=== PATIENT | male | born 2000 ===

== ENCOUNTER 2021-02-24 03:51 | Emergency (ER) | payer BC ==
--- NOTE | 2021-02-24 04:02 | EDM.PDOCBH ---
<Jorge Costa - Last Filed: 02/24/21 03:59> ED HPI GENERAL MEDICAL PROBLEM - General Stated Complaint: INTOXICATED Time Seen by Provider: 02/24/21 03:59 Source of Information: Reports: Patient History Limitations: Reports: No Limitations - History of Present Illness INITIAL COMMENTS - FREE TEXT/NARRATIVE: Carlos was brought in by ambulance due to intoxication. His fiends state that he took about a liter of rum alcohol. he is unresponsive. He may have ingested ecstasy as well. No h/ trauma. - Related Data Allergies Allergy/AdvReac Type Severity Reaction Status Date / Time No Known Allergies Allergy Verified 02/24/21 05:52 Home Meds: Home Meds Potassium Chloride [Klor-Con M20] 40 meq PO TID #12 tab.er 02/24/21 [Rx] ED ROS GENERAL - Review of Systems Review Of Systems: Comprehensive ROS is negative, except as noted in HPI. ED EXAM, BEHAVIORAL HEALTH - Physical Exam Exam: See Below Exam Limited By: Intoxication General Appearance: Obtunded Ears: Normal External Exam Nose: Normal Inspection, Normal Mucosa, No Blood Head: Atraumatic, Normocephalic Respiratory/Chest: No Respiratory Distress, Lungs Clear, Normal Breath Sounds, No Accessory Muscle Use, Chest Non-Tender Cardiovascular: Normal Peripheral Pulses, Regular Rate, Rhythm, No Edema, No Gallop, No JVD, No Murmur, No Rub Departure - Departure Disposition: Home, Self-Care 01 Clinical Impression: Alcohol intoxication, Hypokalemia - Discharge Information Prescriptions: Potassium Chloride [Klor-Con M20] 40 meq PO TID #12 tab.er Instructions: Hypokalemia, Alcohol Intoxication, [id number] Referrals: PCP,None [Primary Care Provider] - Forms: ED Department Discharge Additional Instructions: Please read discharge instructions on alcohol abuse and low potassium Drink in moderation Klor con 20 meq, 2 tablets 3 times daily for 2 days Follow up as needed - Problem List & Annotations (1) Intoxication SNOMED Code(s): 10276116 Code(s): [id number] - Status: Acute - Problem List Review Problem List Initiated/Reviewed/Updated: Yes - Assessment/Plan Plan: Obtain labs,observe. <Michael Guevara - Last Filed: 02/25/21 06:32> COURSE, BEHAVIORAL HEALTH COMP - Course Vital Signs: Last Vital Signs Temp 36.3 C 02/24/21 04:31 Pulse 61 02/24/21 04:31 Resp 17 02/24/21 04:31 BP 113/65 02/24/21 04:31 Pulse Ox 98 02/24/21 04:31 NS 1 L bolus Thiamine 100 mg IV x1 Klor con 40 meq PO x1 Orders, Labs, Meds: Active Orders 24 hr Category Date Time Status Saline Lock Insert [OM.PC] Routine Oth 02/24/21 07:34 Ordered Laboratory Tests 02/24/21 02/24/21 02/24/21 Range/Units 03:58 03:58 03:58 WBC 8.0 (3.2-10.1) x10-3/uL RBC 4.70 (3.90-5.90) x10(6)uL Hgb 15.1 (12.9-17.7) g/dL Hct 43.2 (38.3-50.1) % MCV 91.8 (80.8-98.7) fL MCH 32.1 (27.0-33.3) pg MCHC 34.9 (28.7-35.3) g/dL RDW 12.7 (12.4-15.0) % Plt Count 454 (117-477) x10(3)uL MPV 6.5 L (6.7-11.0) fL Neut % (Auto) 52.9 (40.3-71.8) % Lymph % (Auto) 36.7 (15.8-45.3) % Cowley % (Auto) 7.2 (5.5-15.2) % Eos % (Auto) 2.2 (0.1-6.8) % Baso % (Auto) 1.0 (0.3-3.8) % Neut # (Auto) 4.2 (1.7-6.9) x10-3/uL Lymph # (Auto) 2.9 (0.5-4.5) x10-3/uL Cowley # (Auto) 0.6 (0.0-1.2) x10-3/uL Eos # (Auto) 0.2 (0.0-0.6) x10-3/uL Baso # (Auto) 0.1 (0.0-0.3) x10-3/uL Sodium 136 (135-145) mmol/L Potassium 3.1 L (3.5-5.3) mmol/L Chloride 99 L (100-110) mmol/L Carbon Dioxide 24 (21-32) mmol/L BUN 8 (7-18) mg/dL Creatinine 0.7 (0.70-1.30) mg/dL Est Cr Clr Drug Dosing TNP Estimated GFR (MDRD) > 60 (>60) BUN/Creatinine Ratio 11.4 (9-20) Glucose 106 (80-116) mg/dL Calcium 8.0 L (8.2-10.1) mg/dL Total Bilirubin 0.5 (0.1-1.2) mg/dL AST 14 (5-25) IU/L ALT 20 (12-36) U/L Alkaline Phosphatase 59 (56-112) IU/L Total Protein 6.7 (6.0-8.0) g/dL Albumin 4.0 (3.2-4.5) g/dL Globulin 2.7 g/dL Albumin/Globulin Ratio 1.5 Urine Opiates Screen (NEGATIVE) Ur Buprenorphine Scrn (NEGATIVE) Ur Oxycodone Screen (NEGATIVE) Urine Methadone Screen (NEGATIVE) Ur Propoxyphene Screen (NEGATIVE) Ur Barbiturates Screen (NEGATIVE) Ur Tricyclics Screen (NEGATIVE) Ur Phencyclidine Scrn (NEGATIVE) Ur Amphetamine Screen (NEGATIVE) U Methamphetamines Scrn (NEGATIVE) U Benzodiazepines Scrn (NEGATIVE) U Cocaine Metab Screen (NEGATIVE) U Marijuana (THC) Screen (NEGATIVE) Ethyl Alcohol 0.36 H* (<0.03) % 02/24/21 02/24/21 Range/Units 08:10 08:30 WBC (3.2-10.1) x10-3/uL RBC (3.90-5.90) x10(6)uL Hgb (12.9-17.7) g/dL Hct (38.3-50.1) % MCV (80.8-98.7) fL MCH (27.0-33.3) pg MCHC (28.7-35.3) g/dL RDW (12.4-15.0) % Plt Count (117-477) x10(3)uL MPV (6.7-11.0) fL Neut % (Auto) (40.3-71.8) % Lymph % (Auto) (15.8-45.3) % Cowley % (Auto) (5.5-15.2) % Eos % (Auto) (0.1-6.8) % Baso % (Auto) (0.3-3.8) % Neut # (Auto) (1.7-6.9) x10-3/uL Lymph # (Auto) (0.5-4.5) x10-3/uL Cowley # (Auto) (0.0-1.2) x10-3/uL Eos # (Auto) (0.0-0.6) x10-3/uL Baso # (Auto) (0.0-0.3) x10-3/uL Sodium (135-145) mmol/L Potassium (3.5-5.3) mmol/L Chloride (100-110) mmol/L Carbon Dioxide (21-32) mmol/L BUN (7-18) mg/dL Creatinine (0.70-1.30) mg/dL Est Cr Clr Drug Dosing Estimated GFR (MDRD) (>60) BUN/Creatinine Ratio (9-20) Glucose (80-116) mg/dL Calcium (8.2-10.1) mg/dL Total Bilirubin (0.1-1.2) mg/dL AST (5-25) IU/L ALT (12-36) U/L Alkaline Phosphatase (56-112) IU/L Total Protein (6.0-8.0) g/dL Albumin (3.2-4.5) g/dL Globulin g/dL Albumin/Globulin Ratio Urine Opiates Screen Negative (NEGATIVE) Ur Buprenorphine Scrn Negative (NEGATIVE) Ur Oxycodone Screen Negative (NEGATIVE) Urine Methadone Screen Negative (NEGATIVE) Ur Propoxyphene Screen Negative (NEGATIVE) Ur Barbiturates Screen Negative (NEGATIVE) Ur Tricyclics Screen Negative (NEGATIVE) Ur Phencyclidine Scrn Negative (NEGATIVE) Ur Amphetamine Screen Negative (NEGATIVE) U Methamphetamines Scrn Negative (NEGATIVE) U Benzodiazepines Scrn Negative (NEGATIVE) U Cocaine Metab Screen Negative (NEGATIVE) U Marijuana (THC) Screen Negative (NEGATIVE) Ethyl Alcohol 0.27 H* (<0.03) % Medications Discontinued Medications Generic Name Dose Route Start Last Admin Trade Name Freq PRN Reason Stop Dose Admin Sodium Chloride 1,000 mls @ 999 mls/hr 02/24/21 08:00 02/24/21 07:48 Normal Saline IV 999 mls/hr ASDIRECTED OLGA Administration Potassium Chloride 40 meq 02/24/21 07:42 02/24/21 07:48 Potassium Chloride 20 Meq Tab.Er PO 02/24/21 07:43 40 meq NOW STA Administration Sodium Chloride 10 ml 02/24/21 07:34 Sodium Chloride 0.9% 10 Ml Syringe FLUSH ASDIRECTED PRN Keep Vein Open Thiamine HCl 1 mg 02/24/21 07:36 Thiamine 200 Mg/2 Ml Mdv IVPUSH 02/24/21 07:37 NOW STA Thiamine HCl 100 mg 02/24/21 07:40 02/24/21 07:46 Thiamine 200 Mg/2 Ml Mdv IVPUSH 02/24/21 07:41 100 mg NOW STA Administration Departure - Departure Time of Disposition: 09:30 Condition: Good - My Orders Last 24 Hours: My Active Orders 02/24/21 07:34 Saline Lock Insert [OM.PC] Routine - Assessment/Plan Last 24 Hours: My Active Orders 02/24/21 07:34 Saline Lock Insert [OM.PC] Routine
[2021-02-24] MEDS ORDERED: Sodium Chloride 0.9% 10 ML Syringe FLUSH PRN (07:34)
[2021-02-24] MEDS ORDERED: Thiamine 200 MG/2 ML MDV IVPUSH STA ×2 (07:36→07:40)
[2021-02-24] MEDS ORDERED: Potassium Chloride 20 MEQ Tab.ER PO STA (07:42)
[2021-02-24] MEDS ORDERED: Sodium Chloride 0.9% 1,000 ML IV SCH (08:00)
== END 2021-02-24 09:20 | disposition home or self-care (01) ==
LOC: FB.ED 03:51
DX: F10.129 Alcohol abuse with intoxication, unspecified (principal); E87.6 Hypokalemia; Y90.5 Blood alcohol level of 100-119 mg/100 ml
CPT/HCPCS: 36415; 80053; 80307; 85025; 93005; 96374; 99284-25; A9270-GY; J3411; J7030